=== PATIENT | female | born 1940 | race Caucasian/White ===

== ENCOUNTER 2017-01-05 05:47 | Inpatient (IN) | payer OTHER, BC ==
--- NOTE | 2016-12-06 08:58 | HISTORY & PHYSICAL EXAMINATION ---
DATE OF ADMISSION: 01/05/2017 PROCEDURE: Left knee replacement. HISTORY OF PRESENT ILLNESS: Mrs. Cardenas is a pleasant 76-year-old female who presents for preoperative evaluation prior to her left knee replacement. She states that she has been having pain in this knee for several years now, which has gradually worsened, has not gotten to the point that it is affecting her daily activities including walking, standing, going up and down steps. She describes the pain as aching and sharp and occurs almost continuously. She denies any previous injuries or trauma. She had x-rays which show degenerative joint disease as well as MRI, which also confirms advanced osteoarthritis. After discussing further care, we would like to proceed with a left knee replacement. She has failed previous cortisone injections as well as oral anti-inflammatories. PAST MEDICAL HISTORY: 1. Hypothyroidism. 2. GERD. 3. Hypertension. ALLERGIES: PREVACID CAUSES A RASH. CURRENT MEDICATIONS: 1. Omeprazole 20 mg daily. 2. Carvedilol 6.25 mg 1 tablet b.i.d. 3. Levothyroxine 112 mcg daily. 4. Poca as needed for pain. 5. Diclofenac 75 mg b.i.d. PAST SURGICAL HISTORY: 1. Cholecystectomy. 2. Hysterectomy. 3. Right foot ORIF. FAMILY HISTORY: Noncontributory. SOCIAL HISTORY: The patient denies a history of smoking or tobacco use. No alcohol consumption. REVIEW OF SYSTEMS: Otherwise negative. Please see HPI for pertinent positives. PHYSICAL EXAMINATION: GENERAL: Daniella 76-year-old female in no acute distress, alert and oriented x3. VITAL SIGNS: Her blood pressure is 140/88, pulse 80, O2 sats 98%. HEENT: Normocephalic, atraumatic. CARDIAC: Regular rate and rhythm. No murmurs or gallops appreciated. LUNGS: Clear to auscultation without rales or wheeze bilaterally. ABDOMEN: Soft, nontender. Bowel sounds present. EXTREMITIES: Left lower extremity is neurovascularly intact. Calves are soft and nontender. DP pulse +2. Demonstrates good quad tone. Straight leg raise without lag. No erythema or warmth. Has mild effusion. Positive crepitation with motion, range of motion is 0/5/115. Knee is ligamentously stable, has diffuse tenderness to the knee which is greatest over the medial compartment. IMAGING: Reviewed of the left knee shows findings consistent with degenerative joint disease including joint space narrowing, subchondral sclerosis and osteophyte formation noted. IMPRESSION: 1. Left knee degenerative joint disease. 2. Past medical history as outlined above. PLAN: Further care discussed with patient. At this point in time, has failed conservative measures and would like to proceed with left knee replacement. Placed on aspirin 81 mg p.o. b.i.d. for a month postop.
[2016-12-13 12:53] VITALS: BMI 37.0
--- NOTE | 2016-12-13 13:22 | PAT Medication Instructions ---
Service Date Dec 13, 2016. Current Home Medication List Carvedilol (Coreg), 6.25 MG PO BID Hydrocodone/Acetaminophen 5MG/325MG (Brock 5MG/325MG), 1 TABLET PO Q6H PRN for Pain Levothyroxine Sodium (Levothyroxine Sodium), 1 TAB PO QAM Omeprazole (Prilosec), 20 MG PO QAM Medication Instructions For Your Scheduled Surgery - Take the following medications the morning of surgery with a sip of water OTHERWISE NOTHING TO EAT OR DRINK AFTER MIDNIGHT: Carvedilol (Coreg), 6.25 MG PO BID Hydrocodone/Acetaminophen 5MG/325MG (Brock 5MG/325MG), 1 TABLET PO Q6H PRN for Pain (may take if needed up to 4 hours prior to surgery) Levothyroxine Sodium (Levothyroxine Sodium), 1 TAB PO QAM Omeprazole (Prilosec), 20 MG PO QAM If you have any questions please call us at [phone] or [phone] or [phone]
--- NOTE | 2016-12-13 14:05 | DIAGNOSTIC IMAGING REPORT ---
CHEST 2 VIEWS ROUTINE CLINICAL HISTORY: Preop chest COMPARISON STUDY: No previous studies for comparison. FINDINGS: The cardiac and mediastinal contours are normal. There is no evidence of focal pulmonary consolidation. There is no evidence of failure. No pleural effusions are visualized.[ There is a prominent left cardiophrenic angle fat pad. IMPRESSION: No active disease in the chest. Electronically signed by: Bill Valdez M.D. 12/13/2016 2:03 PM Dictated Date/Time: 12/13/2016 2:02 PM
[2016-12-13 14:10] LABS: BASO % 0.4 %; BASO ABS # 0.04 K/uL (0-0.2); COMPLETE YES; EOS % 2.6 %; HEMATOCRIT 43.5 % (37-47); IG% 0.5 %; LYMPH % 20.4 %; LYMPH ABS # 1.98 K/uL (1.2-3.4); MEAN CELL VOLUME 93.1 fL (80-100); MEAN CORPUSCULAR HGB CONC 33.3 g/dl (32-36); MEAN PLATELET VOLUME 9.6 fL (7.4-10.4); NEUT % 68.1 %; PLATELET COUNT 295 K/uL (130-400); RED BLOOD COUNT 4.67 M/uL (4.2-5.4); WHITE BLOOD COUNT 9.72 K/uL (4.8-10.8)
[2016-12-13 14:22] LABS: URINE APPEARANCE CLEAR (CLEAR); URINE BILIRUBIN NEG (NEG); URINE COLOR YELLOW; URINE EPITHELIAL CELL AUTO 20-30 /lpf (0-5); URINE NITRITE NEG (NEG); URINE SPECIFIC GRAVITY 1.011 (1.000-1.030); UROBILINOGEN NEG (NEG); ZZUR CULT IF INDIC CLEAN CATCH NO
[2016-12-13 14:26] LABS: MANUAL MICROSCOPIC REQUIRED? NO; REVIEW REQ? NO
[2016-12-13 15:06] LABS: BUN/CREATININE RATIO 18.5 (10-20); CALCIUM 8.7 mg/dl (8.5-10.1); CREATININE 0.7 mg/dl (0.60-1.20); POTASSIUM 3.6 mmol/L (3.5-5.1)
[2016-12-14 06:31] LABS: ESTIMATED AVERAGE GLUCOSE 131 mg/dl; HA1C FLAG Normal (Normal)
[2016-12-15 12:31] LABS: PARTIAL THROMBOPLASTIN RATIO 1.1; PROTHROMBIN TIME (PATIENT) 10.8 SECONDS (9.0-12.0)
[~2017-01-05] VITALS: Ht 167.6 cm; Wt 105.2 kg
[2017-01-05] VITALS (8 sets, daily range): BP systolic 128–172; BP diastolic 60–77; PULSE 69–86; TEMP 36.3–36.7; O2SAT 93–97; Ht 167.6 cm; Wt 105.2 kg
[~2017-01-05 05:47] MED LIST: CARV6.252 PO; HYDR-5688 PO; LEVO112T4 PO; PRLSR20 PO
[2017-01-05] MEDS ORDERED: CeleBREX 200 MG CAP PO SCH (06:00)
[2017-01-05] MEDS ORDERED: TRANEXAMIC ACID INJ 1,000 MG in SODIUM CHLORIDE 0.9% 100ML 100 ML IV SCH ×2 (06:00→18:00)
[2017-01-05] MEDS ORDERED: DEXAMETHASONE 4 MG TAB PO SCH (06:00)
[2017-01-05] MEDS ORDERED: FAMOTIDINE 20 MG TAB PO SCH (06:00)
[2017-01-05] MEDS ORDERED: CEFAZOLIN 2000 MG/60 ML D5W 60 ML IV SCH (06:00)
[2017-01-05] MEDS ORDERED: LACTATED RINGER'S 1000ML 1,000 ML IV SCH (06:00)
[2017-01-05] MEDS ORDERED: ROPIVACAINE 5MG/ML 30 ML 150 MG, BUPIVACAINE/EPINEPHR 0.5% MPF 30 ML, KETOROLAC TROMETH... INFIL SCH ×7 (06:00)
[2017-01-05] MEDS ORDERED: ACETAMINOPHEN 500 MG TAB PO SCH (06:00)
[2017-01-05] MEDS ORDERED: GABAPENTIN 300 MG CAP PO SCH (06:00)
[2017-01-05] MEDS ORDERED: METOCLOPRAMIDE HCL 10 MG TAB PO SCH (06:00)
[2017-01-05] MEDS ORDERED: LACTATED RINGER'S 500 ML IV SCH (06:00)
[2017-01-05] MEDS ORDERED: LACTATED RINGER'S 1000ML IV SCH (06:00)
--- NOTE | 2017-01-05 06:55 | History & Physical Bridge Note ---
H&P Re-Evaluation Bridge Note: I have examined the patient, reviewed the History & Physical and in the interval since the performance of the History & Physical I have noted the following changes of clinical significance: No changes noted
[2017-01-05] MEDS ORDERED: BUPIVACAINE 0.25% 30 ML VIAL ONE (07:02)
[2017-01-05] MEDS ORDERED: BUPIVACAINE 0.5 % 5 MG/1 ML PF 10ML VIAL ONE (07:03)
[2017-01-05] MEDS ORDERED: ORTHO JOINT ANESTHETIC ONE (08:56)
[2017-01-05] MEDS ORDERED: POVIDONE-IODINE OP SOLN 30 ML BTL ONE (08:56)
[2017-01-05] MEDS ORDERED: BACITRACIN 50000 UNIT VIAL ONE (08:58)
[2017-01-05] MEDS ORDERED: FENTANYL CITRATE INJ 50 MCG/1 ML 2 ML VIAL ONE (09:05)
[2017-01-05] MEDS ORDERED: MIDAZOLAM HCL 1 MG/ML 2ML VIAL ONE (09:05)
[2017-01-05] MEDS ORDERED: FENTANYL CITRATE INJ 50 MCG/1 ML 2 ML VIAL IV PRN (09:15)
[2017-01-05] MEDS ORDERED: EpHEDrine SULFATE INJ 50 MG/ML AMP IV PRN (09:15)
[2017-01-05] MEDS ORDERED: MEPERIDINE HCL 25 MG/ML CARP IV PRN (09:15)
[2017-01-05] MEDS ORDERED: HYDROmorphone INJ 1 MG/ML SYR IV PRN (09:15)
[2017-01-05] MEDS ORDERED: ATROPINE SULFATE 0.1 MG/ML 5ML SYR IV PRN (09:15)
[2017-01-05] MEDS ORDERED: ONDANSETRON INJ 2 MG/ML 2 ML VIAL IV PRN ×2 (09:15→10:30)
[2017-01-05] MEDS ORDERED: LABETALOL HCL IV 5 MG/ML 20ML IV PRN (09:15)
[2017-01-05] MEDS ORDERED: PROPOFOL IV EMULSION 10 MG/ML 20 ML VIAL IV ONE (10:20)
[2017-01-05] MEDS ORDERED: LIDOCAINE HCL 2% 2 ML VIAL (20MG/ML) ONE (10:20)
--- NOTE | 2017-01-05 10:26 | [facility] Post Operative Brief Note ---
Immediate Operative Summary Operative Date January 05, 2017. Pre-Operative Diagnosis Left Knee Degenerative Joint Disease Post-Operative Diagnosis Left Knee Degenerative Joint Disease Procedure(s) Performed Left Total Knee Arthroplasty Surgeon Dr. Ricketts Slot Floor Attendant Surgeon(s) Doug Moses Estimated Blood Loss 5 ML Findings severe djd lt knee Specimens A: Left Knee Bone and Tissue Complication(s) None Disposition Recovery Room / PACU
[2017-01-05] MEDS ORDERED: DiphenhydrAMINE HCL 50 MG/ML VIAL IV PRN (10:30)
[2017-01-05] MEDS ORDERED: HYDROCODONE/ACETAMOPHEN 5/325MG TAB PO PRN (10:30)
[2017-01-05] MEDS ORDERED: SOD PHOSPHATE/SOD BIPHOSPHATE ENEMA 132 ML BTL PR PRN (10:30)
[2017-01-05] MEDS ORDERED: METOCLOPRAMIDE HCL INJ 5 MG/ML 2 ML VIAL IV PRN (10:30)
[2017-01-05] MEDS ORDERED: MAGNESIUM HYDROXIDE SUSP 30 ML UDC PO PRN (10:30)
[2017-01-05] MEDS ORDERED: BISACODYL 10 MG SUPP PR PRN (10:30)
[2017-01-05] MEDS ORDERED: ZOLPIDEM TARTRATE 5 MG TAB PO PRN (10:30)
[2017-01-05] MEDS ORDERED: ALUMINUM/MAGNESIUM/SIMETH (MAALOX MAX) 30 ML UDC PO PRN (10:30)
[2017-01-05] MEDS ORDERED: OXYCODONE HCL IR 5 MG TAB (IMMEDIATE RELEASE) PO PRN (10:30)
--- NOTE | 2017-01-05 11:11 | OPERATIVE REPORT ---
DATE OF OPERATION: 01/05/2017 PREOPERATIVE DIAGNOSIS: Severe end-stage degenerative joint disease, left knee. POSTOPERATIVE DIAGNOSIS: Severe end-stage degenerative joint disease, left knee. PROCEDURE: Left total knee arthroplasty utilizing Ivey \T\ Nephew Journey II nonblock total knee arthroplasty size 5 femur, 4 tibia, 10 poly, 32 oval patella. SURGEON: Dr. Ricketts. EMERGENCY ROOM PHYSICIAN ASSISTANT: Doug Barone PA-C, who was necessary for prepping, draping, retraction, wound closure of deep fascial, subcutaneous and skin and was necessary for the case. ESTIMATED BLOOD LOSS: 5 mL. TOURNIQUET TIME: 45 minutes. COMPLICATIONS: None. HISTORY OF PRESENT ILLNESS: The patient presents as a very pleasant 76-year-old white female with severe endstage DJD attributable to her left knee. She has been nonresponsive to conservative therapy including physical therapy, anti-inflammatories, relative rest, activity modification, injections and presents for total knee arthroplasty. Risks, complications have been discussed extensively. OPERATION AND FINDINGS: PROCEDURE: The patient was properly prepped and draped in supine position for total knee arthroplasty after identifying the appropriate surgical site. An anterior midline incision was made through the subcutaneous tissues down to the region of the extensor mechanism. A medial parapatellar incision was subsequently made. Meticulous hemostasis was obtained and performed at all times. The patella having been subluxed lateralward, medial and lateral meniscal remnants were excised. The patellar cut was then initially made and was sized to the appropriate size. After subluxing the tibia forward the appropriate meniscal fragments having been removed the distal femur was then cut first utilizing a Ivey \T\ Nephew block. The distal femoral cuts and chamfer cuts were all made under direct visualization and the proximal tibial osteotomy cut was also made utilizing Ivey \T\ Nephew blocks and checked with an extramedullary guide. The appropriate trial components on the femur and tibia were placed. Appropriate trial spacers were used to check flexion and extension gaps. With flexion and extension gaps being equal, the components were then subsequently after thorough irrigation and debridement lavage components were then subsequently cemented in the following order: femur, tibia and patella. Exparel was used for intraoperative anesthesia, the medial parapatellar incision was closed utilizing #1 Vicryl, subQ was closed with 2-0 Vicryl, skin was closed with skin clips. A sterile compression dressing was placed. The patient was taken to recovery room in stable condition. Due to the complex nature of the procedure, the entire surgery was performed with the operational assistance of Doug Barone PA-C. The machine operator assistant, under direct supervision, was involved in the actual performance of all aspects of the surgical procedure including hemostasis, tissue retraction and incision, instrument management, patient positioning, and wound closure. I attest to the content of the Intraoperative Record and any orders documented therein. Any exceptio ns are noted below.
[2017-01-05] MEDS ORDERED: OXYCODONE HCL 10 MG TABCR (OXYCONTIN) PO SCH (11:15)
--- NOTE | 2017-01-05 11:31 | DIAGNOSTIC IMAGING REPORT ---
LEFT KNEE 2 VIEWS History: Left total knee arthroplasty. Degenerative arthritis. Postop. FINDINGS: The patient is status post a left total knee arthroplasty. The hardware is intact. No fracture or dislocation. Surgical drains are in place. IMPRESSION: Left total knee arthroplasty. No evidence for hardware complication. Electronically signed by: Christiano Ag M.D. 01/05/2017 11:30 AM Dictated Date/Time: 01/05/2017 11:29 AM
--- NOTE | 2017-01-05 12:02 | Anesthesiology Progress Note ---
Anesthesia Post Op Note Date & Time January 05, 2017 at 12:02 Vital Signs Pain Intensity: 0 Vital Signs Past 12 Hours Date Time Temp Pulse Resp B/P Pulse Ox O2 Delivery O2 Flow Rate FiO2 01/05/17 11:55 36.2 69 16 129/58 96 Nasal Cannula 2 01/05/17 11:45 36.2 69 16 134/62 96 Nasal Cannula 2 01/05/17 11:35 71 16 126/66 97 Nasal Cannula 2 01/05/17 11:25 68 16 136/60 99 Nasal Cannula 2 01/05/17 11:15 69 16 127/59 99 Mask 8 01/05/17 11:07 36.1 72 16 119/56 96 Mask 8 01/05/17 07:50 36.3 70 20 172/71 Room Air 94 Notes Mental Status: alert / awake / arousable, participated in evaluation Pt Amnestic to Procedure: Yes Nausea / Vomiting: adequately controlled Pain: adequately controlled Airway Patency, RR, SpO2: stable & adequate BP & HR: stable & adequate Hydration State: stable & adequate Neuraxial Anesthesia: was administered, sensory block is resolving Anesthetic Complications: no major complications apparent
[2017-01-05] MEDS: SODIUM CHLORIDE 0.9% 1000ML 1,000 ML IV SCH ×3 (12:20→23:15)
[2017-01-05] MEDS: ACETAMINOPHEN 500 MG TAB PO SCH ×2 (14:09→20:37)
[2017-01-05] MEDS: MoRPHine SULFATE 2 MG/ML CARP IV PRN (16:36)
[2017-01-05] MEDS ORDERED: NURSING VERBAL MED ORDER ONE (17:00)
[2017-01-05] MEDS: OXYCODONE HCL IR 5 MG TAB (IMMEDIATE RELEASE) PO PRN ×2 (17:21→23:15)
[2017-01-05] MEDS: FERROUS GLUCONATE 324 MG TAB PO SCH (17:23)
[2017-01-05] MEDS: CEFAZOLIN IV 2,000 MG in DEXTROSE 5% 50ML 50 ML IV SCH (18:04)
[2017-01-05] MEDS: DOCUSATE SODIUM 100 MG CAP PO SCH (20:36)
[2017-01-05] MEDS: SENNA 8.6 MG TAB PO SCH (20:36)
[2017-01-05] MEDS: ASPIRIN 325 MG ECTAB PO SCH (20:36)
[2017-01-05] MEDS: CARVEDILOL 6.25 MG TAB PO SCH (20:36)
[2017-01-05] MEDS: OXYCODONE HCL 10 MG TABCR (OXYCONTIN) PO SCH (20:40)
[2017-01-06] VITALS (7 sets, daily range): BP systolic 124–147; BP diastolic 63–75; PULSE 72–84; TEMP 36.3–36.7; O2SAT 93–95
[2017-01-06] MEDS: CEFAZOLIN IV 2,000 MG in DEXTROSE 5% 50ML 50 ML IV SCH (01:47)
[2017-01-06] MEDS: OXYCODONE HCL IR 5 MG TAB (IMMEDIATE RELEASE) PO PRN ×4 (04:11→23:46)
[2017-01-06] MEDS: ACETAMINOPHEN 500 MG TAB PO SCH ×3 (06:17→21:32)
[2017-01-06] MEDS: LEVOTHYROXINE 112 MCG TAB PO SCH (06:17)
[2017-01-06] MEDS: SODIUM CHLORIDE 0.9% 1000ML 1,000 ML IV SCH (06:21)
[2017-01-06 07:08] LABS: HEMATOCRIT 37.1 % (37-47); MEAN CELL VOLUME 93.2 fL (80-100); MEAN CORPUSCULAR HEMOGLOBIN 30.2 pg (25-34); MEAN CORPUSCULAR HGB CONC 32.3 g/dl (32-36); MEAN PLATELET VOLUME 9.9 fL (7.4-10.4); PLATELET COUNT 275 K/uL (130-400); RED BLOOD COUNT 3.98 M/uL (4.2-5.4); WHITE BLOOD COUNT 16.57 K/uL (4.8-10.8)
[2017-01-06] MEDS: MULTIVITAMIN TAB PO SCH (08:04)
[2017-01-06] MEDS: FERROUS GLUCONATE 324 MG TAB PO SCH ×3 (08:04→17:55)
[2017-01-06] MEDS: ASPIRIN 325 MG ECTAB PO SCH ×2 (08:04→21:00)
[2017-01-06] MEDS: CARVEDILOL 6.25 MG TAB PO SCH ×2 (08:04→21:00)
--- NOTE | 2017-01-06 08:04 | Anesthesiology Progress Note ---
Anesthesia Post Op Note Date & Time January 06, 2017 at 08:04 Vital Signs Pain Intensity: 6.0 Vital Signs Past 12 Hours Date Time Temp Pulse Resp B/P Pulse Ox O2 Delivery O2 Flow Rate FiO2 01/06/17 07:12 36.7 73 18 124/70 95 Room Air 01/06/17 04:25 136/63 01/06/17 04:16 36.3 72 18 93 Room Air 01/05/17 23:19 Room Air 01/05/17 22:47 36.6 83 16 144/68 93 Room Air Notes Mental Status: alert / awake / arousable, participated in evaluation Pt Amnestic to Procedure: Yes Nausea / Vomiting: adequately controlled Pain: adequately controlled Airway Patency, RR, SpO2: stable & adequate BP & HR: stable & adequate Hydration State: stable & adequate Neuraxial Anesthesia: sensory block resolved Anesthetic Complications: no major complications apparent
[2017-01-06] MEDS: PANTOprazole SOD 40 MG TAB PO SCH (08:05)
[2017-01-06] MEDS: OXYCODONE HCL 10 MG TABCR (OXYCONTIN) PO SCH ×2 (08:10→20:59)
[2017-01-06] MEDS: DOCUSATE SODIUM 100 MG CAP PO SCH ×2 (08:11→21:00)
--- NOTE | 2017-01-06 10:13 | Orthopedic Progress Note ---
Orthopedic Progress Note Date of Service January 06, 2017. Subjective Post OP Day: 1 Reports: complaints (mild burning in the right calf off and on), feeling well, Denies: SOB, calf pain, chest pain, light headedness, nausea / vomiting Objective calves soft nontender, N/V intact, dressing C/D/I, A&O x3, toes mobile Negative Almas's bilaterally. Date Time Temp Pulse Resp B/P Pulse Ox O2 Delivery O2 Flow Rate FiO2 01/06/17 07:12 36.7 73 18 124/70 95 Room Air 01/06/17 04:25 136/63 01/06/17 04:16 36.3 72 18 93 Room Air 01/05/17 23:19 Room Air 01/05/17 22:47 36.6 83 16 144/68 93 Room Air 01/05/17 19:12 36.6 86 16 151/77 95 Nasal Cannula 2.0 01/05/17 15:30 Nasal Cannula 2.0 01/05/17 15:19 36.5 73 16 128/60 94 Nasal Cannula 2.0 01/05/17 14:20 36.7 70 17 146/77 94 Nasal Cannula 2.0 01/05/17 13:22 36.5 71 18 145/73 95 Nasal Cannula 2.0 01/05/17 12:50 36.6 69 18 135/73 96 Nasal Cannula 2.0 01/05/17 12:20 36.6 72 18 128/69 97 Nasal Cannula 2.0 01/05/17 12:20 Nasal Cannula 2.0 01/05/17 12:20 96 Nasal Cannula 2.0 01/05/17 11:55 36.2 69 16 129/58 96 Nasal Cannula 2 01/05/17 11:45 36.2 69 16 134/62 96 Nasal Cannula 2 01/05/17 11:35 71 16 126/66 97 Nasal Cannula 2 01/05/17 11:25 68 16 136/60 99 Nasal Cannula 2 01/05/17 11:15 69 16 127/59 99 Mask 8 01/05/17 11:07 36.1 72 16 119/56 96 Mask 8 Laboratory Results 24 Hours: Test 01/06/17 06:40 Hematocrit 37.1 % Hemoglobin 12.0 g/dL Assessment & Plan Assessment: POD 1 s/p Left TKA Plan: PT/OT Planning for HH PT Inhouse Planning Pain Management: Oxycontin, Morphine, PO Tylenol, Oxy IR DVT Prophylaxis: TEDs, SCDs, ASA Discharge Planning Discharge Planning: home with home health
[2017-01-06] MEDS: SENNA 8.6 MG TAB PO SCH (21:01)
[2017-01-07] MEDS: MoRPHine SULFATE 2 MG/ML CARP IV PRN (03:08)
[2017-01-07] MEDS: LEVOTHYROXINE 112 MCG TAB PO SCH (06:17)
[2017-01-07] MEDS: ACETAMINOPHEN 500 MG TAB PO SCH ×2 (06:17→14:18)
[2017-01-07 07:21] VITALS: BP 147/76; PULSE 71; TEMP 36.8; O2SAT 91
[2017-01-07] MEDS: OXYCODONE HCL IR 5 MG TAB (IMMEDIATE RELEASE) PO PRN ×3 (07:27→13:13)
[2017-01-07] MEDS: FERROUS GLUCONATE 324 MG TAB PO SCH ×2 (09:42→12:30)
[2017-01-07] MEDS: DOCUSATE SODIUM 100 MG CAP PO SCH (09:42)
[2017-01-07] MEDS: PANTOprazole SOD 40 MG TAB PO SCH (09:43)
[2017-01-07] MEDS: ASPIRIN 325 MG ECTAB PO SCH (09:43)
[2017-01-07] MEDS: MULTIVITAMIN TAB PO SCH (09:43)
[2017-01-07] MEDS: CARVEDILOL 6.25 MG TAB PO SCH (09:43)
[2017-01-07] MEDS: OXYCODONE HCL 10 MG TABCR (OXYCONTIN) PO SCH (09:47)
--- NOTE | 2017-01-07 10:10 | Orthopedic Progress Note ---
Orthopedic Progress Note Date of Service January 07, 2017. Subjective Post OP Day: 2 Denies: SOB, calf pain, chest pain Additional Notes: Multiple complaints this AM. Sitting up at the bedside getting ready to do PT. States that she had a little bit of lightheadedness this AM which has now seemed to resolve. Also had a bit of nausea this AM. Knee with pain this AM. No other complaints. Unsure if she wants to go home today. Objective calves soft nontender, N/V intact, incision C/D/I, A&O x3, toes mobile Date Time Temp Pulse Resp B/P Pulse Ox O2 Delivery O2 Flow Rate FiO2 01/07/17 07:21 36.8 71 18 147/76 91 Room Air 01/06/17 23:20 Room Air 01/06/17 23:20 36.7 74 16 130/75 95 Room Air 01/06/17 20:58 74 147/67 01/06/17 15:35 36.5 84 16 136/66 95 Room Air 01/06/17 15:30 Room Air 01/06/17 11:10 72 95 Assessment & Plan Assessment: POD 2 s/p Left TKA Plan: Will recheck pt after PT this AM to see how she is feeling. Possible dc to home today if pain controlled PT/OT Planning for PT Inhouse Planning Pain Management: Oxycontin, Morphine, PO Tylenol, Oxy IR DVT Prophylaxis: Rolan SCDs, ASA Discharge Planning Discharge Planning: home with home health Pain Management: Oxycontin, PO Tylenol, Oxy IR DVT Prophylaxis: TEDs, ASA Therapy: Physical Therapy
[2017-01-07] MEDS ORDERED: ASPEC81 PO (10:14)
[2017-01-07] MEDS ORDERED: OXYSR10 PO (10:14)
[2017-01-07] MEDS ORDERED: ACET-1138 PO (10:14)
[2017-01-07] MEDS ORDERED: SNK PO (10:14)
[2017-01-07] MEDS ORDERED: RXC5 PO (10:14)
--- NOTE | 2017-01-07 10:23 | Discharge Instructions ---
Discharge Instructions Date of Service January 07, 2017. Admission Reason for Admission: Left Knee Osteoarthritis Discharge Discharge Diagnosis / Problem: Left Knee Djd Discharge Goals Goal(s): Decrease discomfort, Improve function Activity Recommendations Activity Limitations: per Instructions/Follow-up section Weightbearing Status: Left weightbearing (as tolerated) . Instructions / Follow-Up Instructions / Follow-Up ACTIVITY RECOMMENDATIONS: SELF CARE INSTRUCTIONS AFTER TOTAL KNEE REPLACEMENT A. You may need to continue a physical therapy program after discharge from the hospital. There are several options available to you. Your doctor will assist you in selecting the best one for you. 1. An out-patient facility 2 to 3 times a week for therapy or home therapy. 2. Continue working on all exercises taught to you in the hospital. Your goals should be to increase bending of your knee to 90 degrees and beyond and to fully straighten your knee. B. You may progress at your own pace from walking with a walker or crutches to a cane; then to no assistive devices. C. Make walking a part of your daily routine. Be up as much as comfortable with rest periods throughout the day. Rest with leg elevation is very important. Use the ice wrap frequently for the first 3-4 weeks. D. There are no restrictions on activities. You may ride in a car, shop, participate in forensic investigator and all social activities. E. Wear the long elastic stockings (APRIL hose) 20 hours a day for 2 weeks after surgery. They can be removed several times a day for laundering and for a bath. F. You may shower, no tub baths until cleared by your doctor. SPECIAL CARE INSTRUCTIONS: VERY IMPORTANT TO READ AND REVIEW A. There are a few signs you need to watch for after you are home. Call [facility] if you notice any of the followin. Increased severe knee pain. Some pain is expected especially when you exercise. 2. Increased swelling in your leg or knee; pain or swelling of the calf muscle in either lower leg. 3. Any fluid drainage from the incision. 4. Shortness of breath or chest pain. B. Please call [facility] at if you have any concerns or questions about your operation or recovery. The doctor or his nurse will return your call promptly. C. You must take antibiotics before dental work, bladder, bowel or other surgery. Your doctor will provide you with a permanent care to carry describing this precaution. IMPORTANT: * REMEMBER TO TAKE ASPIRIN, 81 MG, TWICE DAILY FOR 4 WEEKS UNLESS OTHERWISE DIRECTED. THIS IS YOUR BLOOD THINNER. * HIGH RISK PATIENTS MAY BE PRESCRIBED A STRONGER BLOOD THINNER. THIS WILL BE PROVIDED AT DISCHARGE. * CALL IF INCREASED PAIN, REDNESS, DRAINAGE OR FEVER GREATER THAT 101. * WEAR APRIL HOSE 20 HOURS PER DAY FOR 2 WEEKS. * DERMABOND Prineo- This is a mesh tape dressing that is covered with glue. It should remain in place until the incision is properly healed, usually 10-14 days. This dressing is designed to naturally slough off. You may trim the excess mesh tape as it peels off. Incision may be briefly wet in a shower. Dry immediately by blotting with a clean, dry towel. Do not bath or swim until instructed by your doctor. Do not scratch, rub, or pick at the dressing. Do not apply any topical ointments or lotions until dressing is completely removed and/or instructed by your doctor. There may be a small piece of suture material at one end of your incision. Do not pull or trim this. If it is bothersome or catching on clothing, you may cover it with a band-aid. . FOLLOW UP VISIT: If appointment is not already scheduled: Please call [facility] to make a follow-up appointment for 2 weeks after your surgery at . Current Hospital Diet Patient's current hospital diet: Regular Diet Discharge Diet Recommended Diet: Regular Diet Procedures Procedures Performed: Left Total Knee Arthroplasty Pending Studies Studies pending at discharge: no Laboratory Results Hemoglobin A1c Test 12/13/16 13:46 Range/Units Estimated Average Glucose 131 mg/dl Hemoglobin A1c 6.2 H 4.5-5.6 % Medical Emergencies . Who to Call and When: Medical Emergencies: If at any time you feel your situation is an emergency, please call 911 immediately. . Non-Emergent Contact Non-Emergency issues call your: Surgeon Call Non-Emergent contact if: temperature is above 101.5, your pain is not controlled, your pain is worsening, wound has increased drainage, wound has increased redness . "Provider Documentation" section prepared by Doug Barone. . VTE Core Measure Inpt VTE Proph given/why not?: Other Anticoagulation, T.E.D. Stockings, SCD's [place] Drug Monitoring Program Search Results: patient reviewed within database, see additional documentation Drug Monitoring Findings: Patient was receiving monthly rx for [place] from practitioner in [place]. Last rx was November 30, 2016. Dr Ricketts' office to discuss pain management plans with current practitioner in [place].
[2017-01-07 13:53] VITALS: BP 147/76; PULSE 71; TEMP 36.8; O2SAT 91
--- NOTE | 2017-01-10 22:21 | DISCHARGE SUMMARY ---
DISCHARGE DIAGNOSIS: Degenerative joint disease, left knee. SECONDARY DIAGNOSES: Hypothyroidism, gastroesophageal reflux disease, and hypertension. CONSULTS: None. COMPLICATIONS: None. PROCEDURES: Left total knee arthroplasty performed by Dr. Ricketts on 01/05/2017. BRIEF HISTORY: As dictated in history and physical. HOSPITAL SUMMARY: The patient was admitted on the above-noted date and had the above-noted surgery performed which she tolerated well. On the first postoperative day, the patient had some mild burning in the right calf off and on, she was feeling otherwise well and had no other complaints. Calves were soft, nontender, neurovascularly intact, dressings clean, dry and intact, toes were mobile and she had negative Homans bilaterally. Vital signs were stable. She was afebrile. Hemoglobin was 12.0, and she was started on physical therapy protocol and continued on DVT prophylaxis and pain management. By her second postoperative day, she denied shortness of breath, calf pain or chest pain. She had multiple complaints that morning. She was sitting at the bedside getting ready to go to PT, stated that she had a little bit of lightheadedness that morning which is now seem to have resolved, also had a bit of nausea that morning. She had pain in the knee that morning as well and it was unsure if she wants to go home. Calves were soft, nontender, neurovascularly intact, incision was clean, dry and intact, toes were mobile. Plans were to recheck her later in the afternoon and see how she is feeling and possibly discharge her to home. Later that day, on recheck, she was feeling well and I felt that she want to be discharged to home and she was thusly discharged on 01/07/2017 to home, planning for home health PT. For further review, please see chart. LABORATORY AND X-RAY DATA: As per chart. DISCHARGE INSTRUCTIONS: The patient was discharged to home in satisfactory condition on 01/07/2017. DIET: Regular. ACTIVITY: Weightbearing as tolerated, left lower extremity. Follow TK instruction sheets and special care instructions as noted. FOLLOWUP: Follow up with Dr. Ricketts in 2 weeks. The patient to call for appointment if one has not been made for you. DISCHARGE MEDICATIONS: Acetaminophen 1000 mg p.o. q. 8 hours, aspirin 81 mg p.o. b.i.d. for 30 days, OxyContin 10 mg p.o. q. 12 hours, oxycodone 5-10 mg p.o. q. 4 hours p.r.n., senna 17.2 mg p.o. at bedtime, carvedilol 6.25 mg p.o. b.i.d., levothyroxine 112 mcg p.o. q.a.m., omeprazole 20 mg p.o. q.a.m. and [place] 5/325 one tablet p.o. q. 6 hours p.r.n.
== END 2017-01-07 14:55 | disposition home health service (06) | DRG 470 ==
LOC: ENRESERVDT → ENRESERVTM → C.ACU 05:47 → C.MSW 08:29
PROVIDERS: ADMIT Orthopaedic Surgery; ATTEND Orthopaedic Surgery
PROC: 0SRD0J9 Replacement of Left Knee Joint with Synthetic Substitute, Cemented, Open Approach (ICD-10-PCS; principal; 2017-01-05 09:15)
DX: M17.12 Unilateral primary osteoarthritis, left knee (principal); R11.0 Nausea; R42 Dizziness and giddiness; I10 Essential (primary) hypertension; E03.9 Hypothyroidism, unspecified; K21.9 Gastro-esophageal reflux disease without esophagitis; E66.9 Obesity, unspecified; Z68.37 Body mass index [BMI] 37.0-37.9, adult; Z79.891 Long term (current) use of opiate analgesic; Z79.899 Other long term (current) drug therapy